=== PATIENT | male | born 1990 | race Caucasian/White ===

== ENCOUNTER 2016-11-17 00:16 | Emergency (ER) | payer OTHER ==
[~2016-11-17] VITALS: Ht 180.3 cm; Wt 108.8 kg
[~2016-11-17 00:16] MED LIST: AUGMENTIN875 MG OR; CIPROFLOXACN500 MG PO; LORTAB5 PO; NO HOME MEDS; PERCOCET 5/325M1 TAB OR
[2016-11-17 01:55] VITALS: BP 113/67
== END 2016-11-17 01:58 | disposition home or self-care (01) | DRG 605 ==
LOC: ED 00:16
PROC: 0HQ0XZZ Repair Scalp Skin, External Approach (ICD-10-PCS; principal; 2016-11-17)
DX: S01.01XA Laceration without foreign body of scalp, initial encounter (principal); W01.10XA Fall on same level from slipping, tripping and stumbling with subsequent striking against unspecified object, initial encounter; Y92.009 Unspecified place in unspecified non-institutional (private) residence as the place of occurrence of the external cause

== ENCOUNTER 2016-11-23 16:24 | Emergency (ER) | payer OTHER ==
[~2016-11-23] VITALS: Ht 180.3 cm; Wt 114.0 kg
[2016-11-23 16:50] VITALS: BP 136/82
== END 2016-11-23 16:50 | disposition home or self-care (01) | DRG 950 ==
LOC: ED 16:24
DX: S01.01XD Laceration without foreign body of scalp, subsequent encounter (principal)